=== PATIENT | female | born 1995 | race African-American/Black ===

== ENCOUNTER 2019-04-07 23:00 | Emergency (ER) | payer SELFPAY ==
[2019-04-08] MEDS ORDERED: KETOROLAC TROMETHAMINE 60 MG/2 ML SDV IM ONE (01:06)
[2019-04-08] MEDS ORDERED: NORMAL SALINE 1000 ML 1,000 ML IV ONE (01:07)
[2019-04-08] MEDS ORDERED: METOCLOPRAMIDE HCL 10 MG TABLET PO ONE (01:07)
--- NOTE | 2019-04-08 01:08 | ER Document Report ---
ED Medical Screen (RME) - General Chief Complaint: Headache Stated Complaint: HEADACHE Time Seen by Provider: 04/08/19 01:06 Notes: 23-year-old female with a history of migraines, chief complaint of a migraine headache. Headache started today, reports a throbbing headache behind the right eye and over the right side of the head with light sensitivity. Denies injury, fever, focal numbness or weakness, or any other complaints. States she [place] the [place] out [place] the beach [place] well. TRAVEL OUTSIDE OF THE [place] IN LAST 30 DAYS: No Physical Exam - Vital signs Vitals: Temp Pulse Resp BP Pulse Ox 98.0 F 71 20 144/102 H 99 04/08/19 00:02 04/08/19 00:02 04/08/19 00:02 04/08/19 00:02 04/08/19 00:02 - HEENT Neck: Normal. No: Cesia Hidalgo's - Neurological Neuro grossly intact: Yes Cognition: Normal Orientation: AAOx4 [place] Coma Scale Eye Opening: Spontaneous [place] Coma Scale Verbal: Oriented [place] Coma Scale Motor: Obeys Commands [place] Coma Scale Total: 15 Course - Re-evaluation Re-evalutation: I have greeted and performed a rapid initial assessment of this patient. A comprehensive ED assessment and evaluation of the patient, analysis of test results and completion of the medical decision making process will be conducted by additional ED providers. - Vital Signs Vital signs: Temp Pulse Resp BP Pulse Ox 98.0 F 71 20 144/102 H 99 04/08/19 00:02 04/08/19 00:02 04/08/19 00:02 04/08/19 00:02 04/08/19 00:02
--- NOTE | 2019-04-08 01:53 | ER Document Report ---
ED Headache - General Chief Complaint: Headache Stated Complaint: HEADACHE Time Seen by Provider: 04/08/19 01:06 Notes: Patient is a 23-year-old female with a history of migraines, chief complaint of a migraine headache. Headache started today, reports a throbbing headache behind the right eye and over the right side of the head with light sensitivity. Denies injury, fever, focal numbness or weakness, or any other complaints. States she spent the day out on the beach as well. LMP within the past month. TRAVEL OUTSIDE OF THE [place] IN LAST 30 DAYS: No - Related Data Allergies/Adverse Reactions: No Known Allergies Allergy (Unverified 04/08/19 01:22) Past Medical History - General Information source: Patient - Social History Smoking Status: Never Smoker Frequency of alcohol use: None Drug Abuse: None Lives with: Family Family History: Reviewed & Not Pertinent Neurological Medical History: Reports: Hx Migraine Review of Systems - Review of Systems Constitutional: No symptoms reported EENT: No symptoms reported Cardiovascular: No symptoms reported Respiratory: No symptoms reported Gastrointestinal: See HPI Genitourinary: No symptoms reported Female Genitourinary: No symptoms reported Musculoskeletal: No symptoms reported Skin: No symptoms reported Hematologic/Lymphatic: No symptoms reported Neurological/Psychological: See HPI Physical Exam - Vital signs Vitals: Temp Pulse Resp BP Pulse Ox 98.0 F 71 20 144/102 H 99 04/08/19 00:02 04/08/19 00:02 04/08/19 00:02 04/08/19 00:02 04/08/19 00:02 - Notes Notes: GENERAL: Alert, interacts well. No acute distress. HEAD: Normocephalic, atraumatic. EYES: Pupils equal, round, and reactive to light. Extraocular movements intact. ENT: Oral mucosa moist, tongue midline. Oropharynx unremarkable. Airway patent. Nares patent, no nasal septal hematoma, TM's intact. NECK: Full range of motion. Supple. Trachea midline. LUNGS: Clear to auscultation bilaterally, no wheezes, rales, or rhonchi. No respiratory distress. HEART: Regular rate and rhythm. No murmur ABDOMEN: Soft, non-tender. Non-distended. Bowel sounds present in all 4 quadran ts. GENITOURINARY: Deferred EXTREMITIES: Moves all 4 extremities spontaneously. No edema, normal radial and dorsalis pedis pulses bilaterally. No cyanosis. BACK: no cervical, thoracic, lumbar midline tenderness. No saddle anesthesia, normal distal neurovascular exam. NEUROLOGICAL: Alert and oriented x3. Normal speech. Cranial nerves II through XII grossly intact. PSYCH: Normal affect, normal mood. SKIN: Warm, dry, normal turgor. No rashes or lesions noted. Course - Re-evaluation Re-evalutation: Patient is smiling and well-appearing. She has a normal neurological exam. She reports her headache is the same as her usual headaches without significant change. Patient requesting medication now in triage, states that she hope she can feel better and avoid an IV. Based on her presentation, described symptoms, exam, I have a very low suspicion of acute intracranial hemorrhage, venous sinus thrombosis, or meningitis. Patient asked to be seen again, on reevaluation she has no complaints, she remains very well-appearing, she states her headache is gone and she is ready to leave. IV fluids canceled on her request. Discussed treatment at home with Jameyet, primary care follow-up, and return precautions in detail. She states understanding and agreement. - Vital Signs Vital signs: Temp Pulse Resp BP Pulse Ox 98.0 F 50 L 18 132/94 H 97 04/08/19 00:02 04/08/19 02:00 04/08/19 02:00 04/08/19 02:00 04/08/19 02:00 Discharge - Discharge Clinical Impression: Headache Qualifiers: Headache type: unspecified Headache chronicity pattern: acute headache Intractability: not intractable Qualified Code(s): R51 - Headache Condition: Stable Disposition: HOME, SELF-CARE Additional Instructions: Your evaluation, symptoms, and resolution with treatment were very suggestive of a tension headache with a developing migraine. You can take the prescribed medication if needed for headaches in the future. Follow-up with primary care for additional evaluation and management of migraines. Return if you worsen including returned or severe headache, vomiting, fever, or any other concerning or worsening symptoms. Prescriptions: Butalb/Acetaminophen/Caffeine [Fioricet (50-325-40 mg) Tablet] 1 tab PO Q4HP PRN #20 tab PRN Reason: Forms: Return to Work
[2019-04-08 02:27] VITALS: BP 132/94
== END 2019-04-08 02:00 | disposition home or self-care (01) ==
LOC: ER 23:00
DX: R51 Headache (principal); H57.11 Ocular pain, right eye
CPT/HCPCS: 99283; 96372; J1885

== ENCOUNTER 2019-04-09 19:09 | Emergency (ER) | payer SELFPAY ==
[2019-04-09] MEDS ORDERED: DIPHENHYDRAMINE HCL 50 MG CAPSULE PO ONE (22:39)
[2019-04-09] MEDS ORDERED: METOCLOPRAMIDE HCL 10 MG TABLET PO ONE (22:39)
[2019-04-09] MEDS ORDERED: KETOROLAC TROMETHAMINE 60 MG/2 ML SDV IM ONE (22:40)
--- NOTE | 2019-04-09 23:22 | ER Document Report ---
ED General - General Chief Complaint: Headache Stated Complaint: HEADACHE Time Seen by Provider: 04/09/19 22:28 Mode of Arrival: Ambulatory Information source: Patient Notes: 23-year-old female with history of migraine headaches presents with complaint of headache. Headache is located in her forehead described as pressure-like. Patient denies associated nausea, vomiting but does admit to photophobia. Patient has had prior similar headaches and was seen 2 days ago for similar symptoms and discharged home with Fioricet which the patient states is not helping. Patient states that the only thing that helps her headaches is hydrocodone. Patient denies fever, chills, visual changes, numbness, tingling, slurred speech, difficulty with ambulation, weakness. TRAVEL OUTSIDE OF THE [place] IN LAST 30 DAYS: No - HPI Onset: Other Onset/Duration: Intermittent Quality of pain: Achy, Throbbing Severity: Mild Associated symptoms: Headache. denies: Chest pain, Chills, Fever, Nausea, Vomiting, Shortness of breath Exacerbated by: Denies Relieved by: Denies Similar symptoms previously: Yes Recently seen / treated by doctor: Yes - Related Data Allergies/Adverse Reactions: No Known Allergies Allergy (Verified 04/09/19 19:10) Past Medical History - General Information source: Patient, [facility] Records - Social History Smoking Status: Never Smoker Frequency of alcohol use: None Drug Abuse: None Lives with: Family Family History: Reviewed & Not Pertinent Patient has suicidal ideation: No Patient has homicidal ideation: No Neurological Medical History: Reports: Hx Migraine Renal/ Medical History: Denies: Hx Peritoneal Dialysis Past Surgical History: Reports: Hx Tonsillectomy Review of Systems - Review of Systems Notes: REVIEW OF SYSTEMS: CONSTITUTIONAL : Denies fever, chills, or sweats. Denies recent illness. Denies weight loss, recent hospitalizations. EENT: Denies visual changes, eye pain. Denies sore throat, oral lesions, difficulty swallowing. CARDIOVASCULAR: Denies chest pain. Denies palpitations. Denies lower extremity edema. RESPIRATORY: Denies cough. Denies shortness of breath, wheezing. GASTROINTESTINAL: Denies abdominal pain or distention. Denies nausea, vomiting, or diarrhea. Denies blood in vomitus, stools, or per rectum. Denies black, tarry stools. Denies constipation. GENITOURINARY: Denies difficulty urinating, painful urination, frequency, blood in urine, or vaginal discharge. MUSCULOSKELETAL: Denies back or neck pain or stiffness. Denies joint pain or swelling. SKIN: Denies rash, lesions or sores. HEMATOLOGIC : Denies easy bruising or bleeding. LYMPHATIC: Denies swollen glands. NEUROLOGICAL: Denies confusion or altered mental status. Denies loss of consciousness. Denies dizziness or lightheadedness. Denies weakness or paralysis. Denies problems difficulty with ambulation, slurred speech. Denies sensory loss, numbness, or tingling. Denies seizures. PSYCHIATRIC: Denies anxiety or stress. Denies depression, suicidal ideation, or homicidal ideation. Denies visual or auditory hallucinations. Physical Exam - Vital signs Vitals: Temp Pulse Resp BP Pulse Ox 98.1 F 72 16 145/94 H 100 04/09/19 19:52 04/09/19 19:52 04/09/19 19:52 04/09/19 19:52 04/09/19 19:52 - Notes Notes: PHYSICAL EXAMINATION: GENERAL: Well-appearing, well-nourished and in no acute distress. HEAD: Atraumatic, normocephalic. EYES: Pupils equal round and reactive to light, extraocular movements intact, conjunctiva are normal. ENT: Nares patent, oropharynx clear without exudates. Moist mucous membranes. NECK: Normal range of motion, supple without lymphadenopathy LUNGS: Breath sounds clear to auscultation bilaterally and equal. No wheezes rales or rhonchi. HEART: Regular rate and rhythm without murmurs ABDOMEN: Soft, nontender, nondistended abdomen. No guarding, no rebound. No masses appreciated. Female : deferred Musculoskeletal: Normal range of motion, no pitting or edema. No cyanosis. NEUROLOGICAL: Cranial nerves grossly intact. Normal speech, normal gait. Normal sensory, motor exams PSYCH: Normal mood, normal affect. SKIN: Warm, Dry, normal turgor, no rashes or lesions noted. Course - Re-evaluation Re-evalutation: 04/10/19 18:17 Presentation of a headache that appears to be most consistent with tension versus migrainous type headache. Headache was not maximal in onset, patient has no focal neurologic deficits, no nuchal rigidity, vital signs within normal limits, no papilledema, and patient is overall well in appearance. Based on clinical history and examination I do not suspect an acute subarachnoid hemorrhage, dural venous sinus thrombosis, acute meningitis, or intercranial mass. Given my low clinical suspicion for any acute life-threatening etiology, I do not feel advanced neuro imaging or laboratory testing is indicated at this time. Will proceed with headache cocktail and reassess. - Vital Signs Vital signs: Temp Pulse Resp BP Pulse Ox 97.9 F 54 L 16 150/90 H 97 04/09/19 23:32 04/09/19 23:32 04/09/19 19:52 04/09/19 23:32 04/09/19 23:32 Discharge - Discharge Clinical Impression: Headache Qualifiers: Headache type: unspecified Headache chronicity pattern: unspecified pattern Intractability: not intractable Qualified Code(s): R51 - Headache Condition: Good Disposition: HOME, SELF-CARE Instructions: Use of Diphenhydramine, Headache ([facility]), Reglan ([facility]), Toradol Injection ([facility]) Additional Instructions: You have been seen in the Emergency Department (ED) for a headache. Please use Tylenol (acetaminophen) or Motrin (ibuprofen) as needed for symptoms, but only as written on the box. As we have discussed, please follow up with your primary care doctor as soon as possible regarding today's ED visit and your headache symptoms. Call your doctor or return to the ED if you have a worsening headache, sudden and severe headache, confusion, slurred speech, facial droop, weakness or numbness in any arm or leg, extreme fatigue, or other symptoms that concern you. Prescriptions: Metoclopramide HCl [Reglan] 10 mg PO Q8H PRN #15 tablet PRN Reason: For Headache Forms: Elevated Blood Pressure
[2019-04-09 23:40] VITALS: BP 150/90
== END 2019-04-09 23:40 | disposition home or self-care (01) ==
LOC: ER 19:09
DX: R51 Headache (principal); H53.149 Visual discomfort, unspecified; Z86.69 Personal history of other diseases of the nervous system and sense organs
CPT/HCPCS: 99283; 96372; J1885

== ENCOUNTER 2019-04-22 11:26 | Emergency (ER) | payer SELFPAY ==
[2019-04-22] MEDS ORDERED: ONDANSETRON 4 MG TAB.RAPDIS PO ONE (12:03)
[2019-04-22] MEDS ORDERED: DIPHENHYDRAMINE HCL 25 MG CAPSULE PO ONE (12:03)
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
[2019-04-22 12:33] LABS: APPEARANCE,URINE CLOUDY; BILIRUBIN,URINE NEGATIVE (NEGATIVE); COLOR,URINE YELLOW; GLUCOSE, URINE NEGATIVE (NEGATIVE); KETONES,URINE TRACE mg/dL (NEGATIVE); LEUKOCYTE ESTERASE,URINE NEGATIVE (NEGATIVE); NITRITE,URINE NEGATIVE (NEGATIVE); PROTEIN,URINE NEGATIVE (NEGATIVE); URINE SPECIFIC GRAVITY 1.023; UROBILINOGEN,URINE NEGATIVE mg/dL (<2.0)
--- NOTE | 2019-04-22 13:48 | ER Document Report ---
ED General - General Chief Complaint: Headache Stated Complaint: NAUSEA Time Seen by Provider: 04/22/19 11:59 Mode of Arrival: Ambulatory Information source: Patient, [facility] Records Notes: 23-year-old female with a history of migraine headaches presents with complaint of nausea that started yesterday. Patient states that she had a mild headache yesterday associated with photophobia, nausea. Patient denies any fever, trauma, acute onset. Patient takes Fioricet for her headaches. She denies any recent illness TRAVEL OUTSIDE OF THE [place] IN LAST 30 DAYS: No - HPI Onset: Yesterday Onset/Duration: Gradual, Persistent, Better Quality of pain: Achy Severity: Mild Associated symptoms: Headache, Nausea. denies: Body/muscle aches, Chest pain, Nonproductive cough, Productive cough, Fever, Shortness of breath, Sweating, Weakness Exacerbated by: Denies Relieved by: Denies Similar symptoms previously: Yes Recently seen / treated by doctor: Yes - Related Data Allergies/Adverse Reactions: seafood Allergy (Uncoded 04/22/19 11:31) Past Medical History - General Information source: Patient - Social History Smoking Status: Never Smoker Chew tobacco use (# tins/day): No Frequency of alcohol use: None Drug Abuse: None Lives with: Family Family History: Reviewed & Not Pertinent Patient has suicidal ideation: No Patient has homicidal ideation: No Neurological Medical History: Reports: Hx Migraine Renal/ Medical History: Denies: Hx Peritoneal Dialysis Past Surgical History: Reports: Hx Tonsillectomy Review of Systems - Review of Systems Notes: REVIEW OF SYSTEMS: CONSTITUTIONAL : Denies fever, chills, or sweats. Denies recent illness. Denies weight loss, recent hospitalizations. EENT: Denies visual changes, eye pain. Denies sore throat, oral lesions, difficulty swallowing. CARDIOVASCULAR: Denies chest pain. Denies palpitations. Denies lower extremity edema. RESPIRATORY: Denies cough. Denies shortness of breath, wheezing. GASTROINTESTINAL: Denies abdominal pain or distention. Denies vomiting, or diarrhea. Denies blood in vomitus, stools, or per rectum. Denies black, tarry stools. Denies constipation. GENITOURINARY: Denies difficulty urinating, painful urination, frequency, blood in urine, or vaginal discharge. MUSCULOSKELETAL: Denies back or neck pain or stiffness. Denies joint pain or swelling. SKIN: Denies rash, lesions or sores. HEMATOLOGIC : Denies easy bruising or bleeding. LYMPHATIC: Denies swollen glands. NEUROLOGICAL: Denies confusion or altered mental status. Denies loss of consciousness. Denies dizziness or lightheadedness. Denies weakness or paralysis. Denies problems difficulty with ambulation, slurred speech. Denies sensory loss, numbness, or tingling. Denies seizures. PSYCHIATRIC: Denies anxiety or stress. Denies depression, suicidal ideation, or homicidal ideation. Denies visual or auditory hallucinations. Physical Exam - Vital signs Vitals: Temp Pulse Resp BP Pulse Ox 98.0 F 73 16 146/82 H 97 04/22/19 11:38 04/22/19 11:38 04/22/19 11:38 04/22/19 11:38 04/22/19 11:38 - Notes Notes: PHYSICAL EXAMINATION: GENERAL: Well-appearing, well-nourished and in no acute distress. HEAD: Atraumatic, normocephalic. EYES: Pupils equal round and reactive to light, extraocular movements intact, conjunctiva are normal. ENT: Nares patent, oropharynx clear without exudates. Moist mucous membranes. NECK: Normal range of motion, supple without lymphadenopathy LUNGS: Breath sounds clear to auscultation bilaterally and equal. No wheezes rales or rhonchi. HEART: Regular rate and rhythm without murmurs ABDOMEN: Soft, nontender, nondistended abdomen. No guarding, no rebound. No masses appreciated. Female : deferred Musculoskeletal: Normal range of motion, no pitting or edema. No cyanosis. NEUROLOGICAL: Cranial nerves grossly intact. Normal speech, normal gait. Normal sensory, motor exams PSYCH: Normal mood, normal affect. SKIN: Warm, Dry, normal turgor, no rashes or lesions noted. Course - Re-evaluation Re-evalutation: 04/22/19 14:18 Laboratory 04/22/19 12:15 Urine Color YELLOW Urine Appearance CLOUDY Urine pH 5.0 Ur Specific [place] 1.023 Urine Protein NEGATIVE Urine Glucose (UA) NEGATIVE Urine Ketones TRACE H Urine Blood NEGATIVE Urine Nitrite NEGATIVE Urine Bilirubin NEGATIVE Urine Urobilinogen NEGATIVE Ur Leukocyte Esterase NEGATIVE Urine WBC (Auto) 4 Urine RBC (Auto) 2 Urine Bacteria (Auto) TRACE Squamous Epi Cells Auto 10 Urine Mucus (Auto) FEW Urine Ascorbic Acid NEGATIVE Urine HCG, Qual NEGATIVE Temp Pulse Resp BP Pulse Ox 98.0 F 73 16 146/82 H 97 04/22/19 11:38 04/22/19 11:38 04/22/19 11:38 04/22/19 11:38 04/22/19 11:38 23-year-old female with a history of chronic migraines presents with complaint of nausea and headache. Patient is well-appearing. Vital signs reviewed and within normal limits. Patient did receive Zofran and Benadryl and reports resolution of her headache and nausea. Patient may discharge home with Reglan and Benadryl. Patient was evaluated and treated as appropriate for the patient's presenting symptoms and complaint, with consideration of any critical or life threatening conditions that may be associated with their obtained history and exam as noted above. All results were discussed with patient. Patient provided the opportunity to ask questions, and express concerns. Patient was educated on treatments based on their presumed diagnosis as noted above. At this time we will discharge the patient with return precautions and follow-up recommendations. Verbal discharge instructions given a the bedside. Medication warnings reviewed. Patient is in agreement with this plan and has verbalized understanding of return precautions. After careful consideration I feel that that patient can be safely discharged from the emergency department, they were advised to followup with a primary care physician in 2-3 days. Dictation on this chart was performed using voice recognition software and may result in unintended grammatical, spelling, syntax or errors. 04/22/19 17:00 - Vital Signs Vital signs: Temp Pulse Resp BP Pulse Ox 98.6 F 75 16 143/87 H 99 04/22/19 14:31 04/22/19 14:31 04/22/19 14:31 04/22/19 14:31 04/22/19 14:31 - Laboratory Laboratory results interpreted by me: 04/22/19 12:15 Urine Ketones TRACE H Discharge - Discharge Clinical Impression: Nausea alone Chronic headache Qualifiers: Headache type: unspecified Intractability: not intractable Qualified Code(s): R51 - Headache Condition: Good Disposition: HOME, SELF-CARE Instructions: Headache ([facility]), Nausea or Vomiting, Nonspecific ([facility]) Additional Instructions: Follow up with your [id number] hours for further care or return to the ED IMMEDIATELY if symptoms worsen or you have any concerns. If you cannot afford to follow up with your primary care physician a list of low cost clinics have been provided at the end of your discharge papers as well. Most prescribed medications have multiple side effects. The safest thing to do is when filling your prescription speak to your pharmacist regarding possible interactions with your normal home medications and over the counter medications such as Ibuprofen, Tylenol, Benadryl. If you experience any symptoms that cause you discomfort or concern you should discontinue the medication immediately and return to the emergency room or call your primary care physician. Prescriptions: Metoclopramide HCl [Reglan 10 mg Tablet] 1 tab PO Q8H PRN #10 tablet PRN Reason: For Headache Forms: Return to Work
[2019-04-22 14:35] VITALS: BP 143/87
== END 2019-04-22 14:35 | disposition home or self-care (01) ==
LOC: ER 11:26
DX: R51 Headache (principal); R11.0 Nausea; H53.149 Visual discomfort, unspecified; Z91.013 Allergy to seafood
CPT/HCPCS: 99283; 81025; 81001; S0119